=== PATIENT | female | born 1990 | race Caucasian/White ===

== ENCOUNTER 2017-05-08 13:00 | Inpatient (IN) | payer MEDICARE, OTHER ==
--- NOTE | ~2017-05-08 | DS ---
Unit #: [id number] #: [id number] Patient: PHOENIX DICKINSON [id number] [facility] [address] [place] [address] [id number] MR#: [id number] NAME: PHOENIX DICKINSON [facility] Age: 26 Sex: F Admission Date: 05/08/2017 : 1990 Discharge Date: 05/13/2017 Attending Physician: Cooper Callejas M.D. Primary Care Physician: Primary Care Physician No DISCHARGE SUMMARY IDENTIFYING DATA Ms. Dickinson is a 26-year-old white female who is a resident of [place], [place], and was self-referred to the hospital on voluntary basis. DISCHARGE DIAGNOSES Psychiatric: Bipolar disorder, most recent episode depressed, recurrent, moderate, without psychotic features; opioid dependence, moderate; cannabis abuse, mild. Medical: Hepatitis C. Stressors: Moderate psychosocial stressors. HISTORY OF PRESENT ILLNESS Please see initial psychiatric evaluation for details. PAST PSYCHIATRIC HISTORY Please see initial psychiatric evaluation for details. PAST MEDICAL HISTORY Please see initial psychiatric evaluation for details. HOSPITAL COURSE The patient was [facility] and was oriented to the hospital environment. Routine p.r.n. medications were initiated, and she was started back on her home medications and medications were adjusted and she was closely monitored. She was taking the medications regularly and was tolerating them fairly well and was able to show a decent and therapeutic response with improvement in depression and anxiety, and was denying any suicidal ideations, intent, or plan and was willing to continue treatment on an outpatient basis and as such, it was decided that she will be discharged home and will continue treatment on an outpatient basis. DISCHARGE MEDICATIONS Depakote ER 750 mg at bedtime for bipolar, Requip 0.5 mg b.i.d. for restless legs, Elavil 100 mg at bedtime for sleep, Zyprexa 5 mg a day for bipolar, Requip 1 mg at bedtime for restless legs, and Protonix 40 mg a day for acid reflux. DISCHARGE CONDITION Stable. PROGNOSIS Fair. Unit #: [id number] #: [id number] Patient: PHOENIX DICKINSON Dictated by... Cooper Callejas M.D. IAA/modl TD: 05/13/2017 14:41 JOB #: [id number] DISCHARGE SUMMARY Page 1 of 1 X Cooper Callejas MD DISCHARGE SUMMARY
--- NOTE | ~2017-05-08 | PN ---
Unit #: [id number] #: [id number] Patient: PHOENIX DICKINSON [id number] [facility] [address] [place] [address] [id number] I MR#: [id number] NAME: PHOENIX DICKINSON ROOM: [facility] Age: 26 Sex: F Admission Date: 05/08/2017 : 1990 Attending Physician: Cooper Callejas M.D. Admitting Physician: Cooper Callejas M.D. Primary Care Physician: Primary Care Physician Stephany ENRIQUEZ PROGRESS NOTES DATE 05/09/2017 DISCUSSION Ms. Dickinson is a 26-year-old white female who was seen today and chart was reviewed and case was discussed with the staff. She has been anxious, withdrawn though has not shown any agitation, irritability and has been cooperative with treatment recommendations as she has been taking medications and tolerating them fairly well. MENTAL STATUS EXAMINATION Young white female who was casually dressed with fair personal hygiene and appears to be in no acute distress or discomfort. She was awake and alert on interaction with intact orientation. Her mood was anxious and depressed with congruent affect. Her speech is slow and goal-directed. She denies any suicidal or homicidal ideation. Her insight and judgement remains slightly impaired. TREATMENT PLAN 1. Will continue on current medications and treatment protocol. Will monitor her response to the medications and make further adjustments as needed. 2. Will continue to follow up. Dictated by... Bertha Llamas/colleen TD: 05/09/2017 17:25 JOB #: [id number] Unit #: [id number] #: [id number] Patient: PHOENIX DICKINSON PROGRESS NOTES Page 1 of 1 X Cooper Callejas MD PROGRESS NOTE
--- NOTE | ~2017-05-08 | HP ---
Unit #: [id number] #: [id number] Patient: ALINA CASTILLO [id number] [place] [address] [id number] I MR#: [id number] NAME: ALINA CASTILLO ROOM: P266 Age: 26 Sex: F Admission Date: 05/08/2017 : 1990 Attending Physician: Cooper Callejas M.D. Admitting Physician: Cooper Callejas M.D. Primary Care Physician: Primary Care Physician No HISTORY AND PHYSICAL HISTORY OF PRESENT ILLNESS Alina is a 26 year old admitted to [address] [place] [address] because of her illicit drug use which includes IV heroin. She also reports depression and verbalizes wanting to hurt herself. PAST MEDICAL HISTORY 1. Long history of opioid abuse to include IV heroin. 2. Hepatitis C. 3. Asthma. PAST SURGICAL HISTORY Nothing reported. ALLERGIES No known drug allergies. SOCIAL HISTORY Smokes 1 pack per day. Denies alcohol. Admits to a history of illicit substance abuse to include IV heroin. FAMILY HISTORY Medically noncontributory. REVIEW OF SYSTEMS CONSTITUTIONAL: No fever or chills. HEENT: Denies any sore throat, ear pain or runny nose. CARDIOVASCULAR: Denies chest pain, irregular heart rhythm or palpitations. CHEST: Denies shortness of breath or cough. No hemoptysis. GASTROINTESTINAL: Denies nausea, vomiting, diarrhea or chronic constipation. ENDOCRINE: Denies history of increased thirst or urination. No recent significant weight loss or gain. GENITOURINARY: Denies dysuria, frequency, or hematuria. SKIN: Denies any rashes. HEMATOLOGIC: Denies history of increased bleeding or bruising. MUSCULOSKELETAL: Denies any hot, swollen joints. No generalized muscle pain. NEUROLOGIC: Denies problems with vision or speech. No frequent, severe headaches. No numbness, tingling or weakness in any extremities. Denies loss of bladder or bowel control. CURRENT MEDICATIONS No orders received at the time of this dictation. Unit #: [id number] #: [id number] Patient: ALINA CASTILLO PHYSICAL EXAMINATION GENERAL: Alert, well-nourished, in no apparent distress. VITAL SIGNS: Blood pressure 118/80, heart rate 100, respirations 16, temperature 98.6. WEIGHT: 150. HEIGHT: 5 feet 8 inches. SKIN: She has a healing laceration along the right upper lip. There is no increased redness, swelling, heat or pus noted. HEENT: Normocephalic. TMs not viewed. Oral and nasal passages clear. Conjunctivae clear. PERRLA. EOMs intact. NECK: Supple without lymphadenopathy or thyromegaly. HEART: Regular rate and rhythm without murmur. LUNGS: Clear. ABDOMEN: Soft, nontender. : Not done. EXTREMITIES: No evidence of cyanosis, clubbing or edema. Moves all without focal deficit. NEUROLOGICAL: Grossly within normal limits. Cranial Nerves: II: Visual brock are intact. III, IV AND : Extraocular movements are intact. Pupils are equal, round and reactive to light. V: Facial sensation is grossly normal. VII: Facial movements and expression are normal. VIII: Auditory acuity grossly intact. IX, X: Uvula is midline. Phonation is normal. XI: Patient shrugs shoulders and turns head normally. XII: Tongue protrudes in the midline. Sensory and Motor Function: Sensory and motor sensation is grossly normal. Motor: moves all extremities well. Coordination: Gait is normal. Deep Tendon Reflexes: Intact. IMPRESSION 1. Psychiatric admission. 2. History of illicit substance abuse to include IV drugs. 3. Hepatitis C. 4. Asthma, stable. 5. Laceration to her upper lip sustained prior to this admission. RECOMMENDATIONS PSYCHIATRIC: Per psychiatrist. MEDICAL: 1. See no contraindication to participate in facility's activities. 2. Keep the laceration clean with soap and water. No further Rx. MEDICAL PROGNOSIS Good. MEDICAL CONDITION Stable. Dictated by... Fatimah Briones P.A.-C. for Bertha Rodriguez/colleen Unit #: [id number] #: [id number] Patient: ALINA CASTILLO TD: 05/08/2017 21:58 JOB #: [id number] HISTORY AND PHYSICAL Page 1 of 1 X Fatimah Briones HISTORY AND PHYSICAL
--- NOTE | ~2017-05-08 | PN ---
Unit #: [id number] #: [id number] Patient: PHOENIX DICKINSON [id number] [facility] [address] [place] [address] [id number] I MR#: [id number] NAME: PHOENIX DICKINSON ROOM: [facility] Age: 26 Sex: F Admission Date: 05/08/2017 : 1990 Attending Physician: Cooper Callejas M.D. Admitting Physician: Cooper Callejas M.D. Primary Care Physician: Primary Care Physician Stephany CAT NOTES DATE 05/10/2017 DISCUSSION Ms. Dickinson is a 26-year-old white female who was seen today and chart was reviewed and case was discussed with the staff. She has been anxious, withdrawn and rather seclusive to herself. Meanwhile, she has been cooperative with treatment recommendations as she has been taking the medications and tolerating them fairly well with no reported side effects. MENTAL STATUS EXAMINATION Young white female who was casually dressed with fair personal hygiene, appears to be in no acute distress or discomfort. She was awake and alert on interaction with intact orientation. Her mood was anxious with congruent affect. She denies any suicidal or homicidal ideations. Her insight and judgement remains slightly impaired. TREATMENT PLAN 1. We will continue her on her current medications and treatment protocol. We will monitor her response and make further adjustments as needed. 2. We will continue to follow up. Dictated by... Bertha Llamas/nancy TD: 05/11/2017 03:50 JOB #: [id number] Unit #: [id number] #: [id number] Patient: PHOENIX DICKINSON PROGRESS NOTES Page 1 of 1 X Cooper Callejas MD PROGRESS NOTE
--- NOTE | ~2017-05-08 | PN ---
Unit #: [id number] #: [id number] Patient: PHOENIX DICKINSON [id number] [facility] [address] [place] [address] [id number] I MR#: [id number] NAME: PHOENIX DICKINSON ROOM: [facility] Age: 26 Sex: F Admission Date: 05/08/2017 : 1990 Attending Physician: Cooper Callejas M.D. Admitting Physician: Cooper Callejas M.D. Primary Care Physician: Primary Care Physician Stephany CAT NOTES DATE OF SERVICE 05/11/2017 DISCUSSION Ms. Dickinson is a 26-year-old white female who was seen today. Chart was reviewed and case was discussed with staff. She has been anxious and withdrawn though has not shown any agitation or irritability and has been cooperative with the treatment recommendations and has been taking the medications and tolerating them fairly well with no reported side effects. MENTAL STATUS EXAMINATION Young white female who is casually dressed with fair personal hygiene, appears to be in no acute distress or discomfort. The patient was awake and alert on interaction with intact orientation. Her mood is anxious with congruent affect. She denies any suicidal or homicidal ideations. Her insight and judgment remain slightly impaired. TREATMENT PLAN 1. We will continue her on her current medications and treatment protocol. We will monitor her response to the medications and make further adjustments as needed. 2. We will continue to follow up. Dictated by... Cooper Callejas M.D. IAA/bzg TD: 05/12/2017 12:00 JOB #: [id number] [facility] PROGRESS NOTES Page 1 of 1 X Cooper Callejas MD PROGRESS NOTE
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
--- NOTE | ~2017-05-08 | TN ---
Unit #: [id number] #: [id number] Patient: PHOENIX DICKINSON [id number] [facility] [address] [place] [address] [id number] MR#: [id number] NAME: PHOENIX DICKINSON ROOM: 61 Age: 26 Sex: F Admission Date: 05/08/2017 : 1990 Discharge Date: 05/13/2017 Attending Physician: Cooper Callejas M.D. Primary Care Physician: Primary Care Physician No LOC TRANSFER NOTE DATE OF SERVICE: 05/14/2017 HISTORY OF PRESENT ILLNESS Ms. Dickinson is a 26-year-old white female who is a resident of [place], [place], who was stepped down to the intensive outpatient treatment program from the adult inpatient psychiatric unit, where she was brought in with acute psychosis and substance abuse issues, and was stabilized on medications and was stepped down to the outpatient treatment program where she was seen by me, was seen to be restless, anxious, irritable, and stated that she did not have the prescriptions for her medications and that she came to the hospital, "right, I'm coming out of the 28-day program at [facility]," and that she ran out of the medication and then she was on drugs for 3 days and then she came to the hospital and reports that she has been hearing voices and has been having significant anxiety. Meanwhile, she has been staying at home with her sister and reports having a fairly decent social support system. SUBSTANCE ABUSE HISTORY The patient reports history of opioid and methamphetamine abuse. PAST PSYCHIATRIC HISTORY The patient has had a history of inpatient and outpatient psychiatric treatment and has been diagnosed and treated for schizoaffective disorder, bipolar type. PAST MEDICAL HISTORY The patient's medical history is insignificant. PERSONAL AND SOCIAL HISTORY A 26-year-old white female who reports that she lives at home with her family and has fairly decent social support system. The patient is currently unemployed. MENTAL STATUS EXAMINATION Young white female who was casually dressed with fair personal hygiene, appears to be in no acute distress or discomfort. She was awake and alert on interaction with intact orientation. Her mood was anxious with a congruent affect. Her speech was slow and goal directed. She denies any suicidal or homicidal ideations and also denies any auditory or visual hallucinations. Her insight and judgment remain slightly impaired. DIAGNOSTIC IMPRESSION Psychiatric: Schizoaffective disorder, bipolar type, most recent episode Unit #: [id number] #: [id number] Patient: PHOENIX DICKINSON depressed, recurrent, moderate, with psychosis; methamphetamine abuse, moderate; opioid abuse, moderate. Medical: None. Stressors: Moderate psychosocial stressors. TREATMENT PLAN 1. The patient has presented with a history of mood disorder and substance abuse. We will recommend enrolling her into the outpatient treatment program and giving her prescriptions of her medications. 2. Supportive therapy was provided to the patient. 3. Safe, structured, and nourishing environment will be provided. ESTIMATED LENGTH OF STAY 14 to 21 days. ABILITY TO HELP SELF Limited. WILLINGNESS TO HELP SELF The patient appears to be willing to help self. STRENGTHS 1. Communicative. 2. Cooperative. PROBLEMS 1. Chronic dysphoric symptoms. 2. Poor social support system. DISCHARGE CRITERIA This will be contingent upon the patient's ability to show resolution of her depression, anxiety, and psychosis, and her ability to stay safe to herself, particularly after discharge from the hospital. Dictated by... Bertha Llamas/marii TD: 05/15/2017 03:57 JOB #: [id number] LOC TRANSFER NOTE Page 1 of 1 X Cooper Callejas MD X LOC TRANSFER NOTE
--- NOTE | ~2017-05-08 | PN ---
Unit #: [id number] #: [id number] Patient: PHOENIX DICKINSON [id number] [facility] [address] [place] [address] [id number] I MR#: [id number] NAME: PHOENIX DICKINSON ROOM: [facility] Age: 26 Sex: F Admission Date: 05/08/2017 : 1990 Attending Physician: Cooper Callejas M.D. Admitting Physician: Cooper Callejas M.D. Primary Care Physician: Primary Care Physician Stephany CAT NOTES DATE 05/12/2017 DISCUSSION Ms. Dickinson is a 26-year-old white female who was seen today and chart was reviewed and case was discussed with the staff. She has been anxious, withdrawn though reports doing much better in her mood and functioning and has been calm and cooperative with treatment recommendations. She has been taking medications and tolerating them fairly well with no reported side effects. MENTAL STATUS EXAMINATION Young white female who was casually dressed with fair personal hygiene, appears to be in no acute distress or discomfort. She was awake and alert on interaction with intact orientation. Her mood was anxious with congruent affect. She denies any suicidal or homicidal ideations. Her insight and judgement remains slightly impaired. TREATMENT PLAN 1. We will continue her on her current medications and treatment protocol. We will monitor her response to the medication and make further adjustments as needed. 2. We will continue to follow up. Dictated by... Bertha Llamas/nanyc TD: 05/13/2017 04:59 JOB #: [id number] Unit #: [id number] #: [id number] Patient: PHOENIX DICKINSON PROGRESS NOTES Page 1 of 1 X Cooper Callejas MD PROGRESS NOTE
--- NOTE | ~2017-05-08 | A ---
[facility] DATE: 05/09/17 Patient: PHOENIX CASTILLO Physician: AFAIRF Address: [address] Room/Bed: [address], Zip: [place] [address] Admit Date: 05/08/17 Date of : [birth year] Height: 5 8 Weight: 149 68.0388 NUTRITIONAL ASSESSMENT: REASON: UNINTENTIONAL WEIGHT LOSS PATIENT ADMITTED FOR DRUG USE AND DEPRESSION PMH: PARANOID SCHIZOPHRENIA, HEP C, ASTHMA Anthropometrics: HT: 5'8", WT: 150#, BMI: 22.8 Labs: NO LABS AVAILABLE Meds: MILK OF MAG, MAG-AL Assessment: PATIENT IS A 26 Y/O FEMALE ADMITTED FOR DRUG USE AND DEPRESSION. PATIENT IS CURRENTLY ON DISABILITY, LIVES WITH HER SISTER, SMOKES 1 1/2 PPD, AND HAS BEEN ABUSING HEROIN AND MARIJUANA. PATIENT HAS BEEN NON-COMPLIANT WITH HER MEDICATIONS. UPON ADMIT PATIENT STATED A GOOD APPETITE WITH NO RECENT WEIGHT CHANGES, AND SHE HAS NOT SLEPT IN THE LAST 10 DAYS. WEIGHT HX PER [employer] SHOWS A 24# WEIGHT GAIN SINCE HER LAST ADMIT 3 YEARS AGO. CURRENT PO INTAKES ARE NOT AVAILABLE. PATIENT DOES HAVE A LACERATION TO HER R-UPPER LIP, WITH NO FURTHER SKIN BREAKDOWN OR GI ISSUES NOTED ATT. PATIENT IS ON A REGULAR DIET. Dx: NO NUTRITION DX Intervention: REGULAR DIET, MEDS PER MD, PSYCH Monitoring, Evaluation and Goals: 1. ADEQUATE PO INTAKES >50% OF MEALS 2. PREVENT, CORRECT MICRO/MACRO NUTRIENT DEFICIENCIES MONITOR: WEIGHTS, LABS, PO/FLUID INTAKES Recommendations: 1. CONTINUE REGULAR DIET TOLERATED 2. ENCOURAGE ADEQUATE PO AND FLUID INTAKES RD TO F/U PER PROTOCOL AND PRN R/T PATIENT NOT AT NUTRITIONAL RISK ATT Respectfully, [facility] DATE: 05/09/17 Patient: PHOENIX CASTILLO Physician: MAHESHF Address: [address] Room/Bed: [address], Zip: [place] [address] Admit Date: 05/08/17 Date of : [birth year] Height: 5 8 Weight: 149 68.0388 MICHELE CAO, RD, LD [facility] cc: client file
[~2017-05-08 13:00] MED LIST: AMITRYPTYLINE PO; BACLOFEN10 MG PO; CLEOCIN PO; DEPO-PROVER150 MG/ML INJ; PERCOCET PO; RISPERIDONE PO; TRILEPTAL PO
[2017-05-09 09:36] LABS: URINE APPEARANCE TURBID; URINE BILIRUBIN NEG (NEG); URINE BLOOD NEG (NEG); URINE COLOR YELLOW; URINE GLUCOSE NEG (NEG); URINE KETONE NEG (NEG); URINE LEUKOCYTE ESTERASE NEG (NEG); URINE NITRATE NEG (NEG); URINE PROTEIN NEG (NEG); URINE SPECIFIC GRAVITY 1.024 (1.003-1.035); URINE UROBILINOGEN 0.2 MG/DL (NEG)
[2017-05-09 09:40] LABS: BASOPHIL% 0.7 % (0-2.5); EOSINOPHIL# 0.1 X10e3 (0-0.7); EOSINOPHIL% 2.3 % (0.0-7.0); HEMATOCRIT 45.4 % (35.0-45.0); HEMOGLOBIN 15.1 gm/dL (12.0-16.0); LYMPHOCYTE# 2.2 X10e3 (1.0-3.5); LYMPHOCYTE% 33.2 % (17.0-45.0); MEAN CELL VOLUME 92.1 FL (83-96); MEAN CORPUSCULAR HEMOGLOBIN 30.7 PG (28-34); MEAN CORPUSCULAR HGB CONC 33.3 g/dL (30-36); MEAN PLATELET VOLUME 8.8 FL (6.5-11.5); MONOCYTE# 0.4 X10e3 (0-1.0); MONOCYTE% 6.4 % (3.0-12.0); NEUTROPHIL# 3.8 X10e3 (1.5-7.1); NEUTROPHIL% 57.4 % (40-75); PLATELET COUNT 257 X10e3 (140-420); RED BLOOD COUNT 4.93 X10e (3.90-5.30); RED CELL DISTRIBUTION WIDTH 15.2 % (11.0-15.5); WHITE BLOOD COUNT 6.6 X10e3 (4.0-10.5)
[2017-05-09 09:56] LABS: DIFF IND NO
[2017-05-09 10:50] LABS: AMPHETAMINE NEG (NEG); BARBITURATES NEG (NEG); BENZODIAZEPINES NEG (NEG); COCAINE NEG (NEG); MARIJUANA POS (NEG); OPIATES NEG (NEG); TRICYCLIC ANTIDEPRESSANTS POS (NEG); U METHADONE NEG (NEG)
[2017-05-09 11:00] LABS: ALBUMIN SERUM 4.1 g/dL (3.5-5.0); BILIRUBIN,TOTAL 0.4 mg/dL (0.2-2.0); CALCIUM SERUM 9.4 mg/dL (8.4-10.2); CREATININE SERUM 0.6 mg/dL (0.6-1.4); GLOM FILT RATE Estimated 124.9 mL/min (>60); PROTEIN TOTAL SERUM 7.4 g/dL (6.0-8.3)
== END 2017-05-13 14:00 | disposition home or self-care (01) | DRG 885 ==
LOC: P2L 16:21
PROVIDERS: Psychiatry & Neurology Psychiatry
DX: F31.32 Bipolar disorder, current episode depressed, moderate (principal); F11.20 Opioid dependence, uncomplicated; J45.909 Unspecified asthma, uncomplicated; F17.210 Nicotine dependence, cigarettes, uncomplicated; S01.511D Laceration without foreign body of lip, subsequent encounter; F12.10 Cannabis abuse, uncomplicated
CPT/HCPCS: 80053; 80307; 81003; 84703; 85025